=== PATIENT | male | born 1975 | race Caucasian/White ===

== ENCOUNTER 2021-10-04 12:33 | Emergency (ER) | payer OTHER ==
[2021-10-04 12:48] LABS: HEMOGLOBIN 15.2 gm/dl (14.0-17.5); RED BLOOD COUNT 4.45 M/UL (4.20-5.50); WHITE BLOOD COUNT 11.4 K/UL (4.5-11.0)
== END 2021-10-04 19:06 | disposition home or self-care (01) ==
LOC: ER1 12:33
PROVIDERS: Emergency Medicine
DX: T14.8XXA Other injury of unspecified body region, initial encounter (principal); M54.2 Cervicalgia; F10.129 Alcohol abuse with intoxication, unspecified; Y90.8 Blood alcohol level of 240 mg/100 ml or more; W09.8XXA Fall on or from other playground equipment, initial encounter
CPT/HCPCS: 70450; 71045; 71260; 72125; 72128; 72131; 72170; 80053; 80307; 81001; 83605; 85025; 85610; 85730; 93005; 99284; G0480; Q9967